=== PATIENT | female | born 2000 | race Caucasian/White ===

== ENCOUNTER 2021-04-02 10:45 | Emergency (ER) | payer BC ==
[2021-04-02 11:41] LABS: HEMOGLOBIN 14.2 gm/dl (12.3-15.3); RED BLOOD COUNT 4.64 M/UL (4.00-5.10); WHITE BLOOD COUNT 6.5 K/UL (4.5-11.0)
[2021-04-02 12:03] LABS: BUN/CREATININE RATIO 10 (0-10)
== END 2021-04-02 15:10 | disposition home or self-care (01) ==
LOC: ER1 10:45
PROVIDERS: Physician Assistant Medical
DX: U07.1 COVID-19 (principal); R07.81 Pleurodynia; Z88.2 Allergy status to sulfonamides
CPT/HCPCS: 71045; 80053; 82550; 82553; 83874; 84484; 84703; 85025; 85379; 93005; 99285